=== PATIENT | male | born 1990 | race African-American/Black ===

== ENCOUNTER 2022-05-26 10:36 | Emergency (ER) | payer OTHER ==
[~2022-05-26] VITALS: Ht 162.6 cm; Wt 91.0 kg
[2022-05-26 10:40] VITALS: BP 163/103
[2022-05-26] MEDS ORDERED: KETOROLAC 60MG/2ML VIAL IM ONE (13:00)
[2022-05-26] MEDS ORDERED: CYCLOBENZAPRINE 10MG TABLET PO ONE (13:00)
[2022-05-26] MEDS ORDERED: LIDOCAINE 5% PATCH TOP SCH (13:00)
[2022-05-26 14:10] LABS: CLARITY URINE CLOUDY (CLEAR); COLOR URINE YELLOW (YELLOW); KETONES URINE TRACE (NEGATIVE); LEUKOCYTE ESTERASE URINE NEGATIVE (NEGATIVE); NITRITE URINE NEGATIVE (NEGATIVE); OCCULT BLOOD URINE NEGATIVE (NEGATIVE); PH URINE 5.5 (4.5-8.0); PROTEIN URINE TRACE (NEGATIVE); SPECIFIC GRAVITY URINE 1.029 (1.005-1.030)
[2022-05-26] MEDS ORDERED: CYCL25PO15 MT (14:45)
== END 2022-05-26 15:05 | disposition home or self-care (01) ==
LOC: ER 10:36
DX: M54.50 Low back pain, unspecified (principal)
CPT/HCPCS: 81003; 96372; 99283; J1885